=== PATIENT | male | born 1985 | race African-American/Black ===

== ENCOUNTER 2021-12-24 12:41 | Emergency (ER) | payer OTHER ==
[~2021-12-24] VITALS: Ht 167.6 cm; Wt 71.0 kg
[2021-12-24] MEDS ORDERED: CYCL-707 PO (14:22)
[2021-12-24] MEDS ORDERED: MEDR4PAK PO (14:22)
[2021-12-24 14:29] VITALS: BP 138/90
== END 2021-12-24 14:32 | disposition home or self-care (01) ==
LOC: M ED 12:41
DX: M54.50 Low back pain, unspecified (principal)

== ENCOUNTER 2022-04-20 23:20 | Emergency (ER) | payer OTHER ==
[~2022-04-20] VITALS: Ht 167.6 cm; Wt 66.3 kg
[~2022-04-20 23:20] MED LIST: CYCL-707 PO; MEDR4PAK PO
[2022-04-20] MEDS ORDERED: ACET-683 PO (23:42)
[2022-04-20] MEDS ORDERED: SUMA50TA2 PO (23:42)
[2022-04-21 06:26] VITALS: BP 130/88
[2022-04-21] MEDS ORDERED: diphenhydrAMINE 50MG/ML VIAL (J1200) IV STA (07:12)
[2022-04-21] MEDS ORDERED: KETOROLAC 30 MG/ML 1ML VIAL IV ONE (07:15)
[2022-04-21] MEDS ORDERED: METOCLOPRAMIDE INJ 10MG/2ML VIAL (J2765 PER 1) IV ONE (07:15)
[2022-04-21] MEDS ORDERED: NS 1,000 ML IV ONE (07:15)
[2022-04-21 08:01] LABS: BASO % 0.6 % (0.0-1.0); EOS # 0.1 10^3/uL (0.0-0.5); EOS % 2.9 % (0.0-3.0); HEMATOCRIT 40.5 % (42.0-52.0); HEMOGLOBIN 13.8 g/dl (13.5-17.5); LYMPH # 2.8 10^3/uL (1.5-5.0); LYMPH % 58.8 % (24.0-44.0); MEAN CORPUSCULAR HEMOGLOBIN 27.7 pg (27.0-33.0); MEAN CORPUSCULAR HGB CONC 34.1 g/dl (32.0-36.5); MEAN CORPUSCULAR VOLUME 81.3 fl (80.0-96.0); MONO # 0.4 10^3/uL (0.0-0.8); MONO % 7.9 % (2.0-8.0); NEUTROPHILS # 1.4 10^3/uL (1.5-8.5); NEUTROPHILS % 29.6 % (36.0-66.0); PLATELET COUNT, AUTOMATED 247 10^3/uL (150-450); RED BLOOD COUNT 4.98 10^6/uL (4.30-6.10); WHITE BLOOD COUNT 4.8 10^3/uL (4.0-10.0)
[2022-04-21] MEDS ORDERED: IBUP-1022 PO (09:17)
[2022-04-21] MEDS ORDERED: REGL10TA6 PO (09:17)
== END 2022-04-21 09:37 | disposition home or self-care (01) ==
LOC: M ED 23:20
DX: R51.9 Headache, unspecified (principal); M54.50 Low back pain, unspecified
CPT/HCPCS: 70450; 80047; 83735; 85025; 87486; 87581; 87633; 87798; 96374; 96375; 99284; J1200; J1885; J2765

== ENCOUNTER 2022-06-11 15:59 | Emergency (ER) | payer OTHER ==
[~2022-06-11] VITALS: Ht 167.6 cm; Wt 68.0 kg
[~2022-06-11 15:59] MED LIST changes: +ACET-683 PO; +IBUP-1022 PO; +REGL10TA6 PO; +SUMA50TA2 PO
[2022-06-11] MEDS ORDERED: DULO1CAP4 PO (16:37)
[2022-06-11] MEDS ORDERED: REFR0.1D (16:39)
[2022-06-11] MEDS ORDERED: LIDO1PAD (16:39)
[2022-06-11 17:10] LABS: HEMATOCRIT 40.6 % (42.0-52.0); HEMOGLOBIN 13.6 g/dl (13.5-17.5); MEAN CORPUSCULAR HEMOGLOBIN 27.5 pg (27.0-33.0); MEAN CORPUSCULAR HGB CONC 33.5 g/dl (32.0-36.5); PLATELET COUNT, AUTOMATED 235 10^3/uL (150-450); RED BLOOD COUNT 4.95 10^6/uL (4.30-6.10); WHITE BLOOD COUNT 6.3 10^3/uL (4.0-10.0)
[2022-06-11 17:32] LABS: AMPHETAMINES LEVEL URINE NEGATIVE (NEGATIVE); BARBITURATES URINE NEGATIVE (NEGATIVE); BENZODIAZEPINES URINE NEGATIVE (NEGATIVE); CANNABINOIDS URINE NEGATIVE (NEGATIVE); COCAINE METABOLITE URINE NEGATIVE (NEGATIVE); METHADONE URINE NEGATIVE (NEGATIVE); OPIATES URINE NEGATIVE (NEGATIVE); PHENCYCLIDINE URINE NEGATIVE (NEGATIVE)
[2022-06-11 17:37] LABS: RSV AMPLIFICATION NEGATIVE (NEGATIVE)
[2022-06-11 17:42] LABS: ACETAMINOPHEN LEVEL < 2.0 UG/ML (10.0-30.0); ALBUMIN 4.1 GM/DL (3.2-5.2); ALT/SGPT 15 U/L (12-78); BILIRUBIN,DIRECT 0.1 MG/DL (0.0-0.2); BLOOD UREA NITROGEN 12 MG/DL (7-18); CALCIUM LEVEL 9.6 MG/DL (8.5-10.1); CARBON DIOXIDE LEVEL 27 MEQ/L (21-32); CHLORIDE LEVEL 109 MEQ/L (98-107); CREATININE FOR GFR 1.08 MG/DL (0.70-1.30); ETHYL ALCOHOL (ETHANOL) < 0.003 % (0.000-0.010); GLOMERULAR FILTRATION RATE > 60.0 (>60); GLUCOSE, FASTING 82 MG/DL (70-100); SALICYLATE LEVEL < 1.7 MG/DL (5.0-30.0); SODIUM LEVEL 140 MEQ/L (136-145); TOTAL PROTEIN 7.8 GM/DL (6.4-8.2)
[2022-06-11] MEDS ORDERED: CAPS0.022 TOP (22:58)
[2022-06-11] MEDS ORDERED: SUMA100T2 PO (22:58)
[2022-06-11] MEDS ORDERED: LIDO5TD TOP (22:58)
[2022-06-11] MEDS ORDERED: DULO20CA27 PO (22:58)
[2022-06-11] MEDS ORDERED: GABA-282 PO (22:58)
[2022-06-11] MEDS ORDERED: D3 M1CAP2 PO (22:58)
[2022-06-11] MEDS ORDERED: REFR0.5D8 OU (22:58)
[2022-06-11] MEDS ORDERED: HOME MED LIST COMPLETE! XX SCH (23:00)
[2022-06-12] MEDS ORDERED: DULoxetine 20 MG CAP (CYMBALTA) PO SCH (09:00)
[2022-06-12 16:15] VITALS: BP 135/81
[2022-06-12] MEDS ORDERED: IBUPROFEN 600MG TAB PO ONE (16:20)
== END 2022-06-12 21:08 ==
LOC: M ED 15:59 → EDBD 15:59 → M ED 06-12 21:08
DX: R45.851 Suicidal ideations (principal); Z77.098 Contact with and (suspected) exposure to other hazardous, chiefly nonmedicinal, chemicals